=== PATIENT | male | born 1960 | race Caucasian/White ===

== ENCOUNTER 2016-09-05 17:53 | Emergency (ER) | payer SELFPAY ==
[~2016-09-05] VITALS: Ht 167.6 cm; Wt 93.0 kg
[2016-09-05 18:06] VITALS: BP 131/94
--- NOTE | 2016-09-05 18:48 | NUR ---
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 PATIENT IS LWBS
== END 2016-09-05 18:48 | disposition left against medical advice (07) ==
LOC: MED 17:53
DX: R10.31 Right lower quadrant pain (principal); Z53.21 Procedure and treatment not carried out due to patient leaving prior to being seen by health care provider